=== PATIENT | male | born 1980 | race Caucasian/White ===

== ENCOUNTER 2020-03-04 10:18 | Outpatient (CLI) | payer OTHER ==
--- NOTE | 2020-03-05 10:34 | MRI Report ---
PROCEDURE: Knee LT W/O INDICATIONS: LT KNEE PAIN TECHNIQUE: Noncontrast sagittal PD fast spin echo and T2 fast spin echo with fat saturation, sagittal 3-D gradie nt sequence with fat saturation; coronal T1 spin echo and PD fast spin echo with fat saturation, and axial PD fast spin echo with fat saturation through the knee. COMPARISON: None. FINDINGS: Image quality: Excellent. Menisci: The medial meniscus is intact. Linear oblique high T2 signal intensity traverses the latera l meniscal body, demonstrating inferior articular surface extension, indicating oblique tearing. Cruciate ligaments: The anterior and posterior cruciate ligaments appear intact. Medial structures: The medial collateral ligament appears intact. Visualized portions of the pes ans erinus tendons appear normal. No abnormal bursal fluid. Lateral structures: The lateral collateral ligament, long and short heads of the biceps femoris tend on appear intact. The popliteus tendon appears normal. Iliotibial band appears normal. Anterior structures: The quadriceps and patellar tendons appear intact. Patellar alignment is eleazar l. No femoral trochlear dysplasia or ventral trochlear prominence. Mild edema in the superolateral a spect of the infrapatellar fat pad. Bones and cartilage: No bone marrow contusions or fractures. Mild tricompartmental periarticular ost eophyte formation. Mild diffuse articular cartilage loss overlies the weightbearing aspects of the me dial femoral condyle and medial tibial plateau. Moderate articular cartilage loss overlies the patell ar apex, medial facet, as well as the central and lateral femoral trochlea inferiorly. Joint space: There is a moderate knee joint effusion and a trace Mccoy?s cyst. Normal appearing syn ovial plicae are incidentally noted. IMPRESSION: 1. Tricompartmental osteoarthritis with associated articular cartilage loss. 2. Knee joint effusion and Mccoy's cyst. 3. Lateral meniscal tearing. 4. 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 Reviewed by: Shaun Bedoya MD on 03/05/2020 10:33 AM PDT Approved by: Shaun Bedoya MD on 03/05/2020 10:33 AM PDT Station ID: [id number]
== END 2020-03-04 10:19 | disposition home or self-care (01) ==
LOC: DI 10:18
DX: M25.462 Effusion, left knee (principal); M71.22 Synovial cyst of popliteal space [Baker], left knee; M17.12 Unilateral primary osteoarthritis, left knee; S83.282A Other tear of lateral meniscus, current injury, left knee, initial encounter; M94.262 Chondromalacia, left knee